=== PATIENT | female | born 1975 | race Caucasian/White ===

== ENCOUNTER → 2021-11-04 13:00 | Outpatient (CLI) | payer OTHER, SELFPAY ==
[2021-11-04 13:32] LABS: Add Manual Diff / Slide Review NO; Basophils Absolute Auto 100 /uL (0-100); Eosinophils Absolute Auto 500 /uL (0-450); Eosinophils Percent Auto 4.3 % (2-4); Hematocrit 38.9 % (36-46); Hemoglobin 12.8 g/dL (12.0-16.0); Lymphocytes Absolute Auto 2500 /uL (1100-4500); Lymphocytes Percent Auto 23.1 % (25-40); Mean Corpuscular HGB Conc 32.8 % (30-36); Mean Corpuscular Hemoglobin 27.2 PG (26-34); Monocytes Absolute Auto 900 /uL (0-900); Monocytes Percent Auto 8.6 % (3-14); Neutrophils Absolute Auto 6800 /uL (1500-7000); Platelet Count 288 X10^3/uL (150-400); Red Blood Cell Count 4.69 X10^6/uL (4.0-5.2); Red Cell Distribution Width 19.9 % (11.6-14.8); White Blood Cell Count 10.8 X10^3/uL (4.5-11.0)
== END ==
PROVIDERS: Referring Provider Obstetrics & Gynecology; Visit Provider Obstetrics & Gynecology
DX: D64.9 Anemia, unspecified (principal)
CPT/HCPCS: 36415; 85025

== ENCOUNTER → 2022-03-24 10:11 | Outpatient (CLI) | payer OTHER, SELFPAY ==
[2022-03-24 12:27] LABS: COVID19 -Nasal RAPID Negative (Negative)
== END ==
PROVIDERS: PCP Physician Assistant Medical; Visit Provider Obstetrics & Gynecology
DX: Z01.812 Encounter for preprocedural laboratory examination (principal); Z20.822 Contact with and (suspected) exposure to COVID-19
CPT/HCPCS: 87635

== ENCOUNTER 2022-03-25 07:59 | Day surgery (SDC) | payer OTHER, SELFPAY ==
[2022-03-24 12:27] VITALS: BMI 32.9
[2022-03-25] VITALS (11 sets, daily range): BP systolic 95–145; BP diastolic 64–92; PULSE 76–96; RESP 14–20; TEMP 35.5–36.7; O2SAT 91–96; BMI 32.9
--- NOTE | 2022-03-25 | PATH_ITS ---
[facility] Accession Number: [id number] . 01 Material submitted: . uterus - UTERUS AND BILATERAL FALLOPIAN TUBE . 01 Diagnosis: Uterus and Bilateral Fallopian Tubes; Hysterectomy and Bilateral Salpingectomy (Preserved Cervix and Ovaries): . Proliferative phase endometrium without evidence of endometrial polyps, atypia, hyperplasia or malignancy. Benign bilateral fallopian tubes and paratubal cysts. MRV 03/29/2022 1649 Local . 01 Electronically signed: . Ayo Love MD, Pathologist NPI- [id number] . 01 Gross description: . The specimen is received in formalin labeled with the patient's name, , and uterus and BILAT fallopian tubes, and consists of a fragmented uterus (88 grams, 11.9 x 11.7 x 4.0 cm in aggregate) with two unoriented, fimbriated fallopian tubes measuring 6.2 x 0.9 cm and 4.7 x 0.8 cm. No additional adnexa or cervix is identified. The serosa is sousa and smooth. The endometrium is brown and velvety, and averages approximately 0.2 cm thick with no polyps identified. The myometrium is sousa and firm with no nodules, lesions or hemorrhage identified, and maximum thickness cannot be determined. The longer fallopian tube has sousa smooth serosa with a cystic structure measuring 0.5 cm in greatest dimension filled with clear serous fluid. The lumen appears discontinuous in an area of segmental narrowing located centrally measuring 0.2 cm in diameter. Sectioning reveals a discontinuous stellate lumen. The shorter fallopian tube has congested smooth serosa with multiple cystic structures measuring up to 0.9 cm in greatest dimension filled with clear serous fluid. The lumen appears discontinuous with an area of segmental narrowing located centrally measuring 0.2 cm in diameter. Sectioning reveals an unremarkable stellate lumen. [employer] sections are submitted as follows: . A1-A2: [employer] endometrium. A3: Myometrium/serosa. A4: Longer fallopian tube to include entire bisected fimbriae and cross-sections. A5: [place] fallopian tube to include entire bisected fimbriae and cross-sections. ([id number]) /MRV 03/29/2022 1649 Local . 01 Pathologist provided ICD-10: N92.0, Z86.2, Z94.6 . 01 CPT . 357791 Specimen Comment: A courtesy copy of this report has been sent to [phone] Performed at: 01 [facility] [address] [place] [address] [address] [facility], [place], [place] [id number] MD Andrew Davila MD Phone: [phone]
--- NOTE | 2022-03-25 08:39 | PM.HP.1 ---
History of Present Illness History of Present Illness Date Patient Seen: 03/25/22 Time Patient Seen: 08:39 Chief complaint: OPB Narrative: Patient is a 46-year-old 2 para 2 with menorrhagia and dysmenorrhea who presents for a laparoscopic supracervical hysterectomy with bilateral salpingectomy. She will also have a umbilical hernia repair done by General surgery. Patient History Medical History Anemia Diabetes Diverticular disease Dysmenorrhea Gastroparesis Hemorrhoid Surgical History History of appendectomy History of section S/P wisdom tooth extraction Family & Social History Family History Father Oral cancer Sister Liver failure Social History: household members spouse Tobacco & Substance use: Smoking Status Former smoker alcohol intake never Substance Use Type marijuana Meds Home Medications and Allergies Home Medications Medication Instructions Recorded Confirmed Type atorvastatin 10 mg tablet 10 mg PO QPM 10/06/21 03/24/22 History dicyclomine 20 mg tablet 20 mg PO BID 10/06/21 03/24/22 History duloxetine 60 mg capsule,delayed 120 mg PO DAILY 10/06/21 03/24/22 History release hydrochlorothiazide 25 mg tablet 25 mg PO DAILY 10/06/21 03/24/22 History lisinopril 20 mg tablet 20 mg PO BID 10/06/21 03/24/22 History metformin 500 mg tablet 500 mg PO BID 10/06/21 03/24/22 History metoprolol succinate 25 mg 25 mg PO DAILY 10/06/21 03/24/22 History tablet,extended release 24 hr Allergies Allergy/AdvReac Type Severity Reaction Status Date / Time No Known Drug Allergies Allergy Verified 03/25/22 08:21 Exam Vital Signs (past 8 hours): - 03/25/22 08:25 Temperature 97.3 F L Pulse Rate 81 Respiratory Rate 20 Blood Pressure 145/92 H Pulse Oximetry 96 Oxygen Delivery Method Room Air Oxygen Delivery Method Room Air Narrative Exam Narrative: HEENT: No thyromegaly, no anterior cervical or supraclavicular lymphadenopathy. Lungs:Clear to auscultation bilaterally, no wheezes. Cardiovascular: Regular rate and rhythm, no murmurs, rubs, or gallops. Abdomen: Well-healed scars. No hepatosplenomegaly. No masses palpable. 2 cm umbilical hernia External genitalia: Normal Vagina: Normal Cervix: Normal Bimanual exam: 8 Week size uterus. Mobile. No adnexal masses or tenderness. Extremities: No edema Assessment & Plan Assessment & Plan narrative: Assessment: 46-year-old 2 para 2 with menorrhagia and dysmenorrhea Umbilical hernia Plan: Laparoscopic supracervical hysterectomy with bilateral salpingectomy The risks, benefits, and alternatives to the procedure were explained to the patient. The risks including bleeding, infection, injury to the bowel, bladder, or ureters. Also there is a possibility of an open procedure. The patient understands all of these risks and agrees to proceed. A full par Q was held and consent form was signed. COVID-19 COVID-19 status: Negative Result date/Date tested (Pos, Neg/Pending): 03/24/22 Time Spent With Patient Time with patient: less than 30 minutes Critical Care time: I spent a total of [] minutes of critical care time on this patient's care today; this time is exclusive of procedural time.
--- NOTE | 2022-03-25 08:39 | PM.PREOP ---
Pre-operative Note COVID-19 COVID-19 status: Negative Result date/Date tested (Pos, Neg/Pending): 03/24/22 Criteria for continued procedure: Non-surgical alternatives not available or appropriate per current SOC Interval Note History & Physical reviewed/Exam performed by Physician: Yes Changes to H&P: No H&P completed within 30 days and has changed as indicated here:: 03/25/22
[2022-03-25] MEDS: LACTATED RINGERS 1,000 ML 100 ML IV (08:50)
--- NOTE | 2022-03-25 08:50 | P.HP_ITS ---
History of Present Illness History of Present Illness Date Patient Seen: 03/25/22 Time Patient Seen: 08:50 Chief complaint: OPB Narrative: 46 y.o woman here for elective laparoscopic hysterectomy and umbilical hernia repair. No significant interval changes in health in regards to hernia. Please refer to H&P from October 2021 for further detail. Patient History Medical History Anemia Diabetes Diverticular disease Dysmenorrhea Gastroparesis Hemorrhoid Surgical History History of appendectomy History of section S/P wisdom tooth extraction Family & Social History Family History Father Oral cancer Sister Liver failure Social History: household members spouse Tobacco & Substance use: Smoking Status Former smoker alcohol intake never Substance Use Type marijuana Meds Home Medications and Allergies Home Medications Medication Instructions Recorded Confirmed Type atorvastatin 10 mg tablet 10 mg PO QPM 10/06/21 03/25/22 History dicyclomine 20 mg tablet 20 mg PO BID 10/06/21 03/25/22 History duloxetine 60 mg capsule,delayed 120 mg PO DAILY 10/06/21 03/25/22 History release hydrochlorothiazide 25 mg tablet 25 mg PO DAILY 10/06/21 03/25/22 History lisinopril 20 mg tablet 20 mg PO BID 10/06/21 03/25/22 History metformin 500 mg tablet 500 mg PO BID 10/06/21 03/25/22 History metoprolol succinate 25 mg 25 mg PO DAILY 10/06/21 03/25/22 History tablet,extended release 24 hr Allergies Allergy/AdvReac Type Severity Reaction Status Date / Time No Known Drug Allergies Allergy Verified 03/25/22 08:21 Exam Vital Signs (past 8 hours): - 03/25/22 08:25 Temperature 97.3 F L Pulse Rate 81 Respiratory Rate 20 Blood Pressure 145/92 H Pulse Oximetry 96 Oxygen Delivery Method Room Air Oxygen Delivery Method Room Air Narrative Exam Narrative: Gen-Adult woman alert and oriented Abdomen-Soft non tender. Small reducible umbilical hernia Assessment & Plan Assessment and plan (1) Umbilical hernia: Qualifiers: Obstruction and gangrene presence: without obstruction or gangrene Mariusz lified Code(s): K42.9 - Umbilical hernia without obstruction or gangrene Status: Acute Plan 46F here for lap hysterectomy and umbilical hernia repair. Overview of the hernia repair was discussed with the patient at bedside. Operative risks including bleeding, infection, reoccurrence were discussed. Questions have been answered and she is in agreement with this plan. She provides her verbal and written consent to proceed. Time Spent With Patient Critical Care time: I spent a total of [] minutes of critical care time on this patient's care today; this time is exclusive of procedural time.
[2022-03-25] MEDS: CEFAZOLIN 2 GM/100 ML PREMIX 100 ML IV (09:20)
[2022-03-25] MEDS: BUPIVACAINE 0.5% W/ EPI (PF) 30 ML VIAL INJ ×2 (09:35→11:45)
--- NOTE | 2022-03-25 09:46 | SUR.OPER ---
Lithotomy on padded OR bed. [place] Pad Positioner under torso. Head on pillow, arms padded and tucked at sides. Legs secured in padded yellow fins stirrups.
[2022-03-25] MEDS: ROPIVACAINE 0.2% PF 2 MG/ML 10ML AMP 20 ML INJ (11:02)
--- NOTE | 2022-03-25 12:25 | P.OP_ITS ---
Operative Date/Time/Diagnoses Date of procedure: 03/25/22 Time of procedure: 11:15 Pre-op diagnosis: Menorrhagia Dysmenorrhea Post-op diagnosis: same Procedure & Clinicians Procedure: Procedures Operation Date: 03/25/22 09:00 Actual Procedure Side Surgeon p Laparoscopic Supracervical Hysterectomy w. bilateral salpingectomy MD gus French Hernia Repair - Umbilical w/mesh Luis Ron MD Indications: Menorrhagia, dysmenorrhea, and anemia Surgeon: Leslee Gomes [employer] Operator: Puja Ron Anesthesia Type: General and Local Operative Notes Findings: 10 week size anteverted uterus Tubes status post ligation Normal ovaries Normal liver Gallbladder slightly enlarged Appendix previously removed Adenomyosis well morcellated the uterus Closure Type: primary Specimen(s): left tube, right tube and uterus Applied: catheter (Removed at the end of the case) Estimated blood loss (mL): 100 Blood products transfused: none Procedure in detail: The patient was taken to the operating room where she was placed in the dorsal supine position. After adequate general endotracheal anesthesia was achieved, she was placed in the dorsal lithotomy position, and prepped and draped in the usual sterile fashion. A timeout was performed. A bivalve speculum was placed into the vagina and the anterior lip of the cervix grasped with a single-tooth tenaculum. The cervical os was sequentially dilated until the ZUMI uterine manipulator could pass easily into the endometrial cavity. The single-tooth tenaculum was removed from the anterior lip of the cervix, and the bivalve speculum was removed from the vagina. Attention was then turned to the abdomen where 6 mL of half percent Marcaine with epinephrine were injected in the umbilical fold. A 5 mm incision was made. The Verees needle was placed into the peritoneal cavity, and its placement confirmed by aspiration and drop test. The Verees needle was removed. A 5 mm trocar was placed without difficulty. 2 other incisions were made midway between the pubic symphysis and umbilicus after 5 mL of half percent Marcaine with epinephrine were injected. These were 5 mm incisions. Two 5 mm trocars were placed under direct visualization. The right tube was grasped with an atraumatic grasper. Using the power seal the mesosalpinx was cauterized and cut all the way down to the cornua of the uterus. The cornua of the uterus was then grasped with an atraumatic grasper. The utero-ovarian ligaments were cauterized and cut. The round ligament and broad ligament was cauterized and cut with the power seal. Hemostasis was achieved. The bladder flap was created using the plasma kinetic with cautery and cut [facility] across. The uterine arteries on the right side were extensively cauterized with plasma kinetic. All of this was repeated on the left side. The remainder of the bladder flap was created using the power seal, and the bladder taken down off the lower uterine segment and cervix. Using the Endoloop, the cervix was amputated from the uterus 2 cm above the uterosacral ligaments, after the ZUMI uterine manipulator was removed from the uterus. There was bleeding noted from the right edge of the cervix, and this was cauterized for hemostasis. A sponge stick was placed into the vagina. 6 mL of half percent Marcaine with epinephrine were injected above the pubic symphysis. A 12 mm trocar was placed. An Endobag was placed through the suprapubic trocar and the uterus and tubes were placed into the Endobag. The trocar was removed. The Mukul placed into the endobag. The uterus was hand morcellated in approximately 10 pieces. The Endobag was removed from the peritoneal cavity. The pelvis was copiously irrigated with warm normal saline. No bleeding was noted. 20 cc of 0.2% ropivacaine were placed over the pedicles. The instruments were removed from the abdomen. The CO2 was allowed to escape. The suprapubic incision was closed on the fascia with 0 Vicryl. Two simple interrupted sutures were placed in the subcutaneous layer to reapproximate. All of the incisions were closed with 4-0 Biosyn in a subcuticular fashion, except for the infraumbilical incision which was to be used by General surgery for the hernia repair. The moistened sponge stick was removed from the vagina. Sponge, lap, and instrument counts were correct x-2. The patient tolerated the procedure well, was taken to PACU in stable condition. The infraumbilical incision and all of the other trocar incisions were to be covered by General surgery. Complications: none Post-operative Condition: stable Disposition: PACU Plan for aftercare: Home after recovery
[2022-03-25] MEDS: OXYCODONE IR 5 MG TABLET PO (12:33)
--- NOTE | 2022-03-25 12:49 | P.OP_ITS ---
Operative Date/Time/Diagnoses Date of procedure: 03/25/22 Time of procedure: 12:49 Pre-op diagnosis: Umbilical hernia Post-op diagnosis: same Procedure & Clinicians Procedure: laparoscopic hysterectomy performed by Dr. Gomes open umbilical hernia repair performed by Dr. Ron Same procedure as scheduled: Yes Indications: symptomatic reducible umbilical hernia Surgeon: Luis Ron Click Yes if Unassisted: Yes Anesthesia Type: General Operative Notes Findings: 1.5 cm fascial defect containing omentum Specimen(s): none sent Estimated Blood Loss (mL): 10 Procedure in detail: Patient underwent a laparoscopic hysterectomy by Dr. Gomes prior to my arrival. the infra umbilical laparoscopic port incision was extended into a curvilinear incision. The subcutaneous tissues were divided. The umbilical hernia was identified and the hernia sac was dissected off the umbilical skin and circumfe rentially off of the fascia defect. The hernia sac contained viable omentum and the sac was reduced back into the abdomen. Using blunt dissection I carefully carefully freed the hernia sac from beneath the fascia defect in order to accomodate the mesh. The fascia defect was 1.5 cm in maximal diameter. A Bard Ventralex ST hernia patch 4 cm was inserted beneath the fascia defect and above the peritoneum in a sublay position. The mesh was anchored in multiple locations using Ethibond suture to the fascia and the fascial defect was closed over the mesh. The umbilical skin was tacked to the subcutaneous tissues and then the remainder of the subcutaneous tissues were reapproximated using 3 0 Vicry,l skin closed with 4 0 Monocryl followed by the application of Mastisol and Steri- Strips. Sponge instrument count at the end of the operation was correct. Patient tolerated procedure well was extubated and transferred to postoperative care unit in stable condition. Complications: none Post-operative Condition: stable Disposition: same day surgery
--- NOTE | 2022-03-25 12:52 | SUR.PHASEI ---
In Phase one bg noted to be 213. Dr. Granados stated he would put in insulin orders. No orders received in computer at end of phase 1. Reported off to Karina Sorto RN and relayed need for insulin order from anesthesiologist. RN stated she would followup regarding insulin orders in phase 2. Dr. Gomes confirms that patient may discharge home instead of transferring to floor when ready.
[2022-03-25] MEDS: OXYCODONE/ACETAMINOPHEN 5/325 TABLET 1 TAB PO (12:59)
[2022-03-25] MEDS: ONDANSETRON 4 MG/2 ML INJ ×2 (12:59→14:22)
[2022-03-25] MEDS: HYDROMORPHONE 2 MG INJ IV (12:59)
--- NOTE | 2022-03-25 13:12 | SUR.PHASEII ---
Patient in Phase 2 and still c/o pain 12/23; provided additional pain medications and nausea meds. Updated patient's . Patient drinking juice without difficulty.
[2022-03-25] MEDS: INSULIN LISPRO 100 UNIT/ML 3ML VIAL 8 UNIT SUBCUT (13:17)
== END 2022-03-25 14:56 | disposition home or self-care (01) ==
LOC: OR 08:01 → AC 09:11
PROVIDERS: Surgery; PCP Physician Assistant Medical; Referring Provider Obstetrics & Gynecology; Visit Provider Obstetrics & Gynecology
PROC: 0UT94ZL Resection of Uterus, Supracervical, Percutaneous Endoscopic Approach (ICD-10-PCS; CPT 58542; principal; 2022-03-25 09:00)
PROC: (CPT 49585; 2022-03-25 09:00)
DX: N92.0 Excessive and frequent menstruation with regular cycle (principal); N94.6 Dysmenorrhea, unspecified; Z86.2 Personal history of diseases of the blood and blood-forming organs and certain disorders involving the immune mechanism; K42.9 Umbilical hernia without obstruction or gangrene; E11.9 Type 2 diabetes mellitus without complications; Z79.84 Long term (current) use of oral hypoglycemic drugs; N83.8 Other noninflammatory disorders of ovary, fallopian tube and broad ligament
CPT/HCPCS: 58542; 49585; 81025; 82962; J0360; J0690; J1170; J1815; J2250; J2405; J2704; J2795; J3010